=== PATIENT | female | born 1990 | race Two or more races ===

== ENCOUNTER → 2021-05-04 | Outpatient (CLI) | payer OTHER | LOC: M LAB 14:22 | PROVIDERS: ATTEND Student in an Organized Health Care Education/Training Program | DX: Z83.2 Family history of diseases of the blood and blood-forming organs and certain disorders involving the immune mechanism (principal) ==

== ENCOUNTER → 2021-08-25 | Outpatient (REF) | payer OTHER | LOC: M LAB REF 16:20 | PROVIDERS: ATTEND Physician Assistant Medical | DX: H60.63 Unspecified chronic otitis externa, bilateral (principal) ==